=== PATIENT | female | born 1960 | race Caucasian/White ===

== ENCOUNTER 2021-01-05 18:58 | Inpatient (IN) | payer OTHER ==
[~2021-01-05] VITALS: Ht 165.1 cm; Wt 71.7 kg
[~2021-01-05 18:58] MED LIST: ALBIPROI; ALBU.083IS IH; ALBU90OI6 INH; ALLO100; ALLO100 PO; AMLO5 PO; AMOX500 PO; ASPI81CH PO; ASPI81EC PO; ATEN25 PO; ATOR40TA PO; BISA10S PR; BUPR150T2; CIPR500 PO; CYCL10 PO; DIPH50; DIPH50 PO; DOC250 PO; DULO60 PO; EFFEXOR; ENAL2.5; ENAL20; ENAL20 PO; ERYT.5TO OD; FENO48 PO; GABA300; GABA300 PO; GEMF600; GEMF600 PO; HCTZ 25MG QD; HCTZ PO; HYDACE10A; HYDACE10B; HYDACE10B PO; HYDACE5; HYDACE5 PO; HYDCHL25; HYDCHL25 PO; INSLI100I SC; INSULANI; INSULANI SC; LACT10SY PO; LIDO700A20 TOP; LISI20 PO; LOVA40; MAGCIT300 PO; MECL25; METF850 PO; Mobic15 MG PO; NAPR500; NAPR500 PO; NAPR550 PO; NATALCARE PLUS; NIFE30ER PO; NIFE60ER; Norco 5-325 Ta1 EACH PO; OMEP20ER PO; ONDA8 PO; OXYACE5T PO; OXYB5 PO; POTCHL10ER; PRED20 PO; PRO AIR; PROACE100 PO; PROCODE120 PO; Prilosec Otc20 MG PO; RANI150; RANI150 PO; RXCLIN PO; RXCYCL10 PO; RXHYDACE PO; RXONDA4ODT MM; Robaxin500 MG PO; TRAZ100; TRAZ100 PO; VENL150ER PO; VENL75; VENL75 PO
[2021-01-05 19:22] LABS: BASOPHILS ABSOLUTE AUTO 0.04 K/mm3 (0.00-0.23); BASOPHILS PERCENT AUTO 0 % (0-2); EOSINOPHILS PERCENT AUTO 0 % (0-6); Hematocrit 53.5 % (33.0-51.0); Hemoglobin 17.8 g/dL (11.5-16.0); IMMATURE GRAN ABSOLUTE AUTO 0.06 K/mm3 (0.00-0.10); IMMATURE GRAN PERCENT AUTO 1 % (0-1); LYMPHOCYTES ABSOLUTE AUTO 1.16 K/mm3 (0.84-5.20); LYMPHOCYTES PERCENT AUTO 9 % (21-46); MONOCYTES ABSOLUTE AUTO 0.41 K/mm3 (0.16-1.47); MONOCYTES PERCENT AUTO 3 % (4-13); Mean Corpuscular HGB 27.1 pg (26.0-34.0); Mean Corpuscular HGB Conc 33.3 g/dL (31.5-36.5); Mean Corpuscular Volume 81 fL (80-100); Mean Platelet Volume 11.6 fL (9.1-12.4); NEUTROPHILS ABSOLUTE AUTO 11.05 K/mm3 (1.96-9.15); NEUTROPHILS PERCENT AUTO 87 % (41-73); Platelet Count 279 K/mm3 (150-400); RDW Coefficient Variation 14.9 % (11.7-14.2); RDW Standard Deviation 40.9 fL (35.1-46.3); Red Blood Cell Count 6.57 M/mm3 (3.80-5.20); White Blood Cell Count 12.72 K/mm3 (4.00-11.30)
[2021-01-05 19:55] LABS: Alanine Aminotransfer (ALT/SGP 21 U/L (12-78); Albumin, Blood 3.7 g/dL (3.4-5.0); Albumin/Globulin Ratio 0.7 (0.8-1.8); Alk Phos 149 U/L (50-136); Anion Gap 13 mmol/L (6-16); Aspartate Aminotrans (AST/SGOT 12 U/L (12-37); Bilirubin, Total 0.4 mg/dL (0.1-1.0); Blood Urea Nitrogen 19 mg/dL (8-24); Bun/Creatinine Ratio 31.1 (12.0-20.0); CO2, Blood 24 mmol/L (21-32); Calcium, Blood 10.1 mg/dL (8.5-10.1); Chloride, Blood 97 mmol/L (98-108); Creatinine, Blood 0.61 mg/dL (0.40-1.00); Glomerular Filtration Rate >60 (60-); Glucose, Blood 593 mg/dL (70-99); Sodium, Blood 134 mmol/L (136-145); Total Protein, Blood 8.7 g/dL (6.4-8.2); Troponin I <0.015 ng/mL (0.000-0.040)
[2021-01-05 20:56] LABS: Magnesium, Blood 2.1 mg/dL (1.6-2.4)
[2021-01-05 21:17] LABS: Base Excess Venous 0.8 mmol/L; Bicarbonate Venous 23.8 mmol/L (24.0-30.0); PCO2 Venous 52.6 mmHg (38-42); PO2 Venous 59.9 mmHg (38-42); pH Blood Venous 7.32 (7.34-7.37)
[2021-01-05 22:27] LABS: Source, Urine Clean Catch
[2021-01-05 22:31] LABS: Bilirubin, Urine Neg (Neg); Blood, Urine 5+ (Neg); Glucose Qualitative, Urine 4+ (Neg); Ketones, Urine 1+ (Neg); Leukocyte Esterase, Urine 1+ (Neg); Nitrite, Urine Pos (Neg); Protein, Urine 3+ (Neg); Specific Gravity, Urine 1.015 (1.003-1.022); Urobilinogen, Urine NORM (Normal)
[2021-01-05 22:37] LABS: Appearance, Urine Hazy (Clear); Bacteria Mod /hpf; Color, Urine Pale Yellow (P-Yellow); Red Blood Cells, Urine TNTC /hpf (0-2); Squamous Epithelial Cells Few /hpf (Few)
[2021-01-05] MEDS ORDERED: NITR100CA PO (23:31)
[2021-01-05] MEDS ORDERED: METF500 PO (23:31)
[2021-01-06 00:17] LABS: SARS-Cov-2 (COVID-19) PCR, MMC NEGATIVE (NEGATIVE)
[2021-01-06 02:07] LABS: Glucose, Blood 323 mg/dL (70-99)
[2021-01-06 04:28] LABS: BASOPHILS ABSOLUTE AUTO 0.02 K/mm3 (0.00-0.23); BASOPHILS PERCENT AUTO 0 % (0-2); EOSINOPHILS PERCENT AUTO 0 % (0-6); Hematocrit 47.8 % (33.0-51.0); Hemoglobin 15.9 g/dL (11.5-16.0); IMMATURE GRAN ABSOLUTE AUTO 0.06 K/mm3 (0.00-0.10); IMMATURE GRAN PERCENT AUTO 0 % (0-1); LYMPHOCYTES ABSOLUTE AUTO 1.72 K/mm3 (0.84-5.20); LYMPHOCYTES PERCENT AUTO 12 % (21-46); MONOCYTES ABSOLUTE AUTO 0.86 K/mm3 (0.16-1.47); MONOCYTES PERCENT AUTO 6 % (4-13); Mean Corpuscular HGB 27.4 pg (26.0-34.0); Mean Corpuscular HGB Conc 33.3 g/dL (31.5-36.5); Mean Corpuscular Volume 82 fL (80-100); Mean Platelet Volume 11.2 fL (9.1-12.4); NEUTROPHILS ABSOLUTE AUTO 11.48 K/mm3 (1.96-9.15); NEUTROPHILS PERCENT AUTO 81 % (41-73); Platelet Count 239 K/mm3 (150-400); RDW Coefficient Variation 14.3 % (11.7-14.2); RDW Standard Deviation 41.9 fL (35.1-46.3); White Blood Cell Count 14.14 K/mm3 (4.00-11.30)
[2021-01-06 04:58] LABS: Alanine Aminotransfer (ALT/SGP 15 U/L (12-78); Albumin, Blood 2.8 g/dL (3.4-5.0); Albumin/Globulin Ratio 0.7 (0.8-1.8); Alk Phos 107 U/L (50-136); Anion Gap 6 mmol/L (6-16); Aspartate Aminotrans (AST/SGOT 17 U/L (12-37); Bilirubin, Total 0.4 mg/dL (0.1-1.0); Blood Urea Nitrogen 17 mg/dL (8-24); Bun/Creatinine Ratio 27.2 (12.0-20.0); CO2, Blood 30 mmol/L (21-32); Calcium, Blood 8.9 mg/dL (8.5-10.1); Chloride, Blood 102 mmol/L (98-108); Creatinine, Blood 0.63 mg/dL (0.40-1.00); Globulin, Blood 3.8 g/dL (2.2-4.0); Glomerular Filtration Rate >60 (60-); Glucose, Blood 300 mg/dL (70-99); Potassium, Blood 3.8 mmol/L (3.5-5.5); Sodium, Blood 138 mmol/L (136-145)
[2021-01-06 05:35] LABS: Total Protein, Blood 6.6 g/dL (6.4-8.2)
--- NOTE | 2021-01-06 06:01 | NUR ---
Pt admitted for sepsis and UTI. Pt's lactate was 3.5, pt received IVAbx, as well as 2L of iVF un ED. CT of head was negative. BG high, insulin given. Will continue to monitor.
[2021-01-06 14:54] LABS: CHOL/HDL RATIO 7.1; Cholesterol 228 mg/dL (50-200); HDL Cholesterol 32 mg/dL (>39); LDL/HDL RATIO 4.6; Low Density Lipoprotein Chol 147 mg/dL (0-110); Triglycerides 246 mg/dL (30-160); Very Low Density Lipoprot Chol 49 mg/dL (6-32)
--- NOTE | 2021-01-06 18:43 | NUR ---
SHIFT SUMMARY PATIENT IS ALERT AND ORIENTED X2-3. PATIENT HAS BEEN RESTING MOST OF SHIFT. PATIENT ADMITTED FOR SEPSIS. PATIENTS CBG WAS UNCONTROLLED AT BEGINNING OF SHIFT AND HAS BEEN LOWER TOWARDS LATE AFTERNOON. PATIENT IS ON ROOM AIR. VITAL SIGNS REVIEWED AND WILL CONTINUE TO MONITOR UNTIL END OF SHIFT.
[2021-01-07 05:00] LABS: BASOPHILS ABSOLUTE AUTO 0.03 K/mm3 (0.00-0.23); BASOPHILS PERCENT AUTO 0 % (0-2); EOSINOPHILS PERCENT AUTO 1 % (0-6); Hematocrit 43.8 % (33.0-51.0); Hemoglobin 14.5 g/dL (11.5-16.0); IMMATURE GRAN ABSOLUTE AUTO 0.06 K/mm3 (0.00-0.10); IMMATURE GRAN PERCENT AUTO 0 % (0-1); LYMPHOCYTES ABSOLUTE AUTO 3.32 K/mm3 (0.84-5.20); LYMPHOCYTES PERCENT AUTO 24 % (21-46); MONOCYTES ABSOLUTE AUTO 0.64 K/mm3 (0.16-1.47); MONOCYTES PERCENT AUTO 5 % (4-13); Mean Corpuscular HGB 27.4 pg (26.0-34.0); Mean Corpuscular HGB Conc 33.1 g/dL (31.5-36.5); Mean Corpuscular Volume 83 fL (80-100); Mean Platelet Volume 11.3 fL (9.1-12.4); NEUTROPHILS ABSOLUTE AUTO 9.62 K/mm3 (1.96-9.15); NEUTROPHILS PERCENT AUTO 70 % (41-73); Platelet Count 213 K/mm3 (150-400); RDW Coefficient Variation 14.1 % (11.7-14.2); RDW Standard Deviation 42.2 fL (35.1-46.3); Red Blood Cell Count 5.29 M/mm3 (3.80-5.20); White Blood Cell Count 13.77 K/mm3 (4.00-11.30)
--- NOTE | 2021-01-07 05:21 | NUR ---
Pt AAOx3, pt denies pain at this time. Pt calls appropriately, has a PIV that is SL, tele is SR, Pt has some right sided weakeness, with not as strong of a composition mixer or as much resistence when pressure applied. ECHO done and EF is 50% Plan: Continue to monitor, labs, IVABx, tele, and medically manage.
[2021-01-07 05:30] LABS: Albumin, Blood 2.4 g/dL (3.4-5.0); Anion Gap 7 mmol/L (6-16); Blood Urea Nitrogen 16 mg/dL (8-24); Bun/Creatinine Ratio 30.1 (12.0-20.0); CO2, Blood 30 mmol/L (21-32); Calcium, Blood 8.9 mg/dL (8.5-10.1); Chloride, Blood 101 mmol/L (98-108); Creatinine, Blood 0.53 mg/dL (0.40-1.00); Glomerular Filtration Rate >60 (60-); Glucose, Blood 223 mg/dL (70-99); Phosphorus, Blood 2.6 mg/dL (2.5-4.9); Sodium, Blood 138 mmol/L (136-145)
--- NOTE | 2021-01-07 18:33 | NUR ---
call light in reach, pt states she is feeling better and ready to go home tomorrow, saline locked, rm air, call light in reach, using bsc for bm, r side still weak, will continue to monitor and treat until share report with noc nurse
--- NOTE | 2021-01-08 04:12 | NUR ---
PATIENT IS A&OX3. PATIENT C/O PAIN BEGINNING OF SHIFT. PRN MED FOR PAIN ADMINISTERED WITH GOOD EFFECTS. ADLS PROVIDED. SAFETY MEASURES IN PLACE. WILL CONTINUE TO MONITOR PATIENT
--- NOTE | 2021-01-08 18:47 | NUR ---
a+o, r side moves well but states it hurts, medicated with patches to pt satisfaction, call light in reach, rm air, saline locked, continent, transfers with assistance to bsc, cooprative with treatment and medication, will continue to monitor and treat until share report with noc nurse
--- NOTE | 2021-01-09 04:23 | NUR ---
PATIENT IS AWAKE, A&OX4, ABLE TO MAKE NEEDS KNOWN. PATIENT IS COMPLIANT WITH MEDICATIONS. PATIENT DENIES PAIN OR DISCOMFORT AT THIS TIME. ADLS PROVIDED. SAFETY MEASURES IN PLACE, WILL CONTINUE TO MONITOR PATIENT.
[2021-01-09 05:20] LABS: Hematocrit 44.1 % (33.0-51.0); Hemoglobin 14.7 g/dL (11.5-16.0); Mean Corpuscular HGB 27.2 pg (26.0-34.0); Mean Corpuscular HGB Conc 33.3 g/dL (31.5-36.5); Mean Corpuscular Volume 82 fL (80-100); Mean Platelet Volume 11.9 fL (9.1-12.4); Platelet Count 188 K/mm3 (150-400); RDW Coefficient Variation 13.7 % (11.7-14.2); RDW Standard Deviation 40.3 fL (35.1-46.3); White Blood Cell Count 10.84 K/mm3 (4.00-11.30)
[2021-01-09 05:39] LABS: Albumin, Blood 2.4 g/dL (3.4-5.0); Anion Gap 7 mmol/L (6-16); Blood Urea Nitrogen 13 mg/dL (8-24); Bun/Creatinine Ratio 24.9 (12.0-20.0); CO2, Blood 27 mmol/L (21-32); Calcium, Blood 8.7 mg/dL (8.5-10.1); Chloride, Blood 103 mmol/L (98-108); Creatinine, Blood 0.52 mg/dL (0.40-1.00); Glomerular Filtration Rate >60 (60-); Glucose, Blood 213 mg/dL (70-99); Phosphorus, Blood 2.9 mg/dL (2.5-4.9); Potassium, Blood 3.6 mmol/L (3.5-5.5); Sodium, Blood 137 mmol/L (136-145)
[2021-01-09] MEDS ORDERED: ATOR20 PO (13:45)
[2021-01-09] MEDS ORDERED: LISI20 PO (13:46)
[2021-01-09] MEDS ORDERED: CLOP75 PO (13:46)
[2021-01-09] MEDS ORDERED: METO25 PO (13:48)
--- NOTE | 2021-01-09 15:45 | NUR ---
DISCHARGE SUMMARY PT DC'D @ APPROX 1530 VIA WHEELCHAIR DOWN TO PRIVATE VEHICLE. DISCHARGE INSTRUCTIONS REVIEWED c PT, PT HAD NO FURHTER QUESTIONS @ THIS TIME. IV REMOVED AND SITE APPEARED WNL. MEDS FAXED TO PREFERRED PHARMACY. HARD SCRIPTS PROVIDED FOR FWW AND CBG MACHINE.
== END 2021-01-09 15:40 | disposition home health service (06) | DRG 64 ==
LOC: ER 18:58 → MEDS 01-06 01:12 → ENPENDDIS 01-09 13:24 → MEDS 01-09 15:40
PROVIDERS: Family Medicine; Internal Medicine; Physician Assistant; Student in an Organized Health Care Education/Training Program; ADMIT Hospitalist
DX: I63.9 Cerebral infarction, unspecified (principal); A41.9 Sepsis, unspecified organism; R65.20 Severe sepsis without septic shock; N39.0 Urinary tract infection, site not specified; G81.91 Hemiplegia, unspecified affecting right dominant side; Z20.822 Contact with and (suspected) exposure to COVID-19; E11.65 Type 2 diabetes mellitus with hyperglycemia; E86.0 Dehydration; S40.012A Contusion of left shoulder, initial encounter; S50.02XA Contusion of left elbow, initial encounter; E87.6 Hypokalemia; S09.90XA Unspecified injury of head, initial encounter; I10 Essential (primary) hypertension; Z91.14 Patient's other noncompliance with medication regimen; F32.9 Major depressive disorder, single episode, unspecified; F41.9 Anxiety disorder, unspecified; M19.90 Unspecified osteoarthritis, unspecified site; F17.210 Nicotine dependence, cigarettes, uncomplicated; Z88.6 Allergy status to analgesic agent; Z88.2 Allergy status to sulfonamides; Z91.030 Bee allergy status; Z71.6 Tobacco abuse counseling; Z88.8 Allergy status to other drugs, medicaments and biological substances; Z79.82 Long term (current) use of aspirin; Z79.899 Other long term (current) drug therapy; Z90.49 Acquired absence of other specified parts of digestive tract; Z98.890 Other specified postprocedural states; W19.XXXA Unspecified fall, initial encounter
CPT/HCPCS: 36415; 70450; 70551; 71046; 72125; 80053; 80061; 80069; 81001; 82803; 82947; 83036; 83605; 83690; 83735; 83880; 84132; 84443; 84484; 85025; 85027; 87040; 87077; 87086; 87186; 93005; 93010; 93306; 93880; 96374; 97116; 97161; 97165; 97530; 97535; 99285-25; A9270; J0696; J1650; J1815; J1817; J2765; J7030; J7120; U0004

== ENCOUNTER → 2021-05-08 | Outpatient (CLI) | payer OTHER ==
[~2021-05-08] MED LIST changes: +ATOR20 PO; +CLOP75 PO; +METF500 PO; +METO25 PO; +NITR100CA PO; +OXYC5 PO
[2021-05-09 18:10] LABS: HPV 16 Negative (Negative); HPV 18 Negative (Negative); HPV OTHER HR TYPES Negative (Negative)
== END ==
LOC: LAB SHORT 15:08
PROVIDERS: Obstetrics & Gynecology
DX: Z01.419 Encounter for gynecological examination (general) (routine) without abnormal findings (principal)
CPT/HCPCS: 87624; G0123

== ENCOUNTER → 2021-05-08 | Outpatient (CLI) | payer OTHER | END | disposition home or self-care (01) | LOC: LAB SHORT 08:18 | DX: N95.0 Postmenopausal bleeding (principal) | CPT/HCPCS: 88305; 88342 ==